=== PATIENT | male | born 1950 | race Caucasian/White ===

== ENCOUNTER 2018-12-12 03:27 | Emergency (ER) | payer BC ==
[2018-12-12] MEDS ORDERED: Cephalexin 500 MG Cap PO ONE (04:28)
[2018-12-12] MEDS ORDERED: Phenazopyridine 95 MG Tab PO SCH (04:28)
--- NOTE | 2018-12-12 04:28 | EDM.PDOC ---
ED HPI GENERAL MEDICAL PROBLEM - General Chief Complaint: Genitourinary Problem Stated Complaint: BLADDER INFECTION Time Seen by Provider: 12/12/18 04:00 Source of Information: Reports: Patient History Limitations: Reports: No Limitations - History of Present Illness INITIAL COMMENTS - FREE TEXT/NARRATIVE: Patient is a pleasant 68-year-old male who presents today with concern for acute onset low back pain and lower crampy abdominal pain which is bad enough that he couldn't sleep. He states that he had an episode on Tuesday, but self resolved. This evening at 9:30 at started and he took 2 Tylenol, but just can't get comfortable enough to sleep. He denies any other symptoms. He does not have any fever, chills or sweats. He does not have any vomiting or diarrhea, no change in bowel habits. He does not have any injury that might have caused this. He has been for the past 40 years the same woman. He denies any alcohol, tobacco or drug use. He has prediabetes for which she does not take any medications. Remote history of renal stones in the but none since then. No other new medications such as a diuretic or other lifestyle changes. - Related Data Home Meds: Home Meds Cephalexin [Keflex] 500 mg PO QID #40 capsule 12/12/18 [Rx] Past Medical History Genitourinary History: Reports: BPH Endocrine/Metabolic History: Reports: Diabetes, Type II Other Endocrine/Metabolic History: Currently diet controlled Social & Family History - Family History Family Medical History: Noncontributory - Tobacco Use Smoking Status *Q: Former Smoker - Alcohol Use Alcohol Use History: No - Recreational Drug Use Recreational Drug Use: No - Sexual History Sexual History: Reports: Single Partner - Living Situation & Occupation Living situation: Reports: Occupation: Employed ED ROS GENERAL - Review of Systems Review Of Systems: ROS reveals no pertinent complaints other than HPI. ED EXAM, GENERAL - Physical Exam Exam: See Below Free Text/Narrative:: Gen.: Alert, very pleasant no acute distress and sitting comfortably in the chair. Head is atraumatic, throat without erythema and mucous members are moist. Neck is supple. Lungs are clear throughout with no wheezes or crackles and heart is regular rate and rhythm. Abdomen is obese, soft nondistended with minimal lower abdominal tenderness. He has no costovertebral angle tenderness. He has no obvious findings to suggest mechanical back pain such as worsening with flexion or extension. His gait is normal. Strength equal side to side. Peripheral pulses +2 in both the upper and lower extremities and there is no lower extremity edema. Skin on his visible extremities is clear and without lesions or rashes Course - Vital Signs Text/Narrative:: symptoms raise concern for UTI. Patient has + leukesterace and gross blood on urine, does not have nitrites but urinated just prior to arrival. Remote allergy to penicillin as a child. Has not been on any antibiotics recently or had trouble with recurrent UTIs. Possible kidney infection although seemed very unlikely given his nontoxic appearance, would not have typical symptoms due to a non-divided kidney which I suspect is probably in his pelvis. Does not appear to have renal stones tonight. Patient instructed if worsening symptoms or symptoms not resolving to contact PCP or return to see a physician. See discharge instructions, all questions answered Last Recorded V/S: Last Vital Signs Temp 36.7 C 12/12/18 03:45 Pulse 69 12/12/18 03:45 Resp 18 12/12/18 03:45 BP 121/51 L 12/12/18 03:45 Pulse Ox 94 L 12/12/18 03:45 - Orders/Labs/Meds Orders: Active Orders 24 hr Category Date Time Status CULTURE URINE [RM] Stat Lab 12/12/18 04:17 Ordered Phenazopyridine [Urinary Pain Relief] Med 12/12/18 04:28 Ordered 95 mg PO TIDPC Medication Orders Phenazopyridine HCl (Urinary Pain Relief) 95 mg PO TIDPC BEATRICE Labs: Laboratory Tests 12/12/18 Range/Units 03:50 Urine Color Yellow (YELLOW) Urine Appearance Clear (CLEAR) Urine pH 7.0 H (5.0-6.5) Ur Specific [place] 1.005 L (1.010-1.025) Urine Protein Negative (NEGATIVE) mg/dL Urine Glucose (UA) Normal (NORMAL) mg/dL Urine Ketones 15 H (NEGATIVE) mg/dL Urine Occult Blood Large H (NEGATIVE) Urine Nitrite Negative (NEGATIVE) Urine Bilirubin Negative (NEGATIVE) Urine Urobilinogen Normal (NEGATIVE) mg/dL Ur Leukocyte Esterase Small H (NEGATIVE) Urine RBC 20-30 H (0-5) Urine WBC 0-5 (0-5) Ur Squamous Epith Cells Occasional (NS,R,O) Urine Bacteria Few H (NS) Urine Mucus Few H (NS) Meds: Medications Generic Name Dose Route Start Last Admin Trade Name Freq PRN Reason Stop Dose Admin Phenazopyridine HCl 95 mg 12/12/18 04:28 Urinary Pain Relief PO TIDPC BEATRICE Discontinued Medications Generic Name Dose Route Start Last Admin Trade Name Freq PRN Reason Stop Dose Admin Cephalexin 500 mg 12/12/18 04:28 Keflex PO 12/12/18 04:29 ONETIME ONE Departure - Departure Time of Disposition: 04:29 Disposition: Home, Self-Care 01 Condition: Good Clinical Impression: UTI, Urinary tract infectious disease - Discharge Information *PRESCRIPTION DRUG MONITORING PROGRAM REVIEWED*: Not Applicable *COPY OF PRESCRIPTION DRUG MONITORING REPORT IN PATIENT VICENTE: Not Applicable Prescriptions: Cephalexin [Keflex] 500 mg PO QID #40 capsule Instructions: Urinary Tract Infection, Adult Referrals: Aidee Matson [employer] [Primary Care Provider] - Forms: ED Department Discharge Additional Instructions: lots of water and be sure to urinate regular to empty bladder should improve within 24-48 hours dose of pyridium given here - will turn urine orange. Available over the counter also for bladder discomfort. You should not take this medication prior to diagnosis with a UTI as it interferes with the lab test. if fever, vomiting, worsening pain, or other symptoms, can return to ER or contact PCP - My Orders Last 24 Hours: My Active Orders 12/12/18 04:17 CULTURE URINE [RM] Stat 12/12/18 04:28 Phenazopyridine [Urinary Pain Relief] 95 mg PO TIDPC - Assessment/Plan Last 24 Hours: My Active Orders 12/12/18 04:17 CULTURE URINE [RM] Stat 12/12/18 04:28 Phenazopyridine [Urinary Pain Relief] 95 mg PO TIDPC
== END 2018-12-12 04:45 | disposition home or self-care (01) ==
LOC: FB.ED 03:27
DX: N39.0 Urinary tract infection, site not specified (principal); E11.9 Type 2 diabetes mellitus without complications; Z87.891 Personal history of nicotine dependence
CPT/HCPCS: 81001; 87086; 99282; A9270